=== PATIENT | female | born 1980 | race Caucasian/White ===

== ENCOUNTER 2021-10-18 14:58 | Emergency (ER) | payer MEDICAID, OTHER ==
[~2021-10-18] VITALS: Ht 172.7 cm; Wt 99.8 kg
[2021-10-18] MEDS ORDERED: HALOPERIDOL LACTATE INJ 5 MG/ML VIAL ONE (17:20)
[2021-10-18] MEDS ORDERED: LORAZEPAM INJ 2 MG/ML VIAL ONE (17:21)
[2021-10-18] MEDS ORDERED: LORAZEPAM INJ 2 MG/ML VIAL IM ONE (17:30)
[2021-10-18] MEDS ORDERED: IV NS 0.9% 500 ML BAG IV ONE (17:30)
[2021-10-18] MEDS ORDERED: HALOPERIDOL LACTATE INJ 5 MG/ML VIAL IM ONE (17:30)
--- NOTE | 2021-10-18 17:35 | NUR ---
PT [id number] & [employer] FROM STREET FOR AGITATION/HYPERVERBAL & SCREAMING. PT AAOX2, RR EVEN & UNLABORED. PT SEEN & EVAL'D BY DR. GOODMAN. MEDICATED ORDERED, SITTER AT BS & WILL CONT TO MONITOR.
--- NOTE | 2021-10-18 20:32 | NUR ---
urine collected and sent to lab
[2021-10-18 21:50] LABS: BASOPHILS # (AUTO) 0.1 K/uL (0.0-0.2); BASOPHILS % (AUTO) 1.2 % (0.0-2.0); EOSINOPHILS % (AUTO) 2.8 % (0.0-6.0); HEMATOCRIT 39 % (33-45); HEMOGLOBIN 12.6 g/dL (11.5-14.8); LYMPHOCYTES # (AUTO) 2.9 K/uL (0.8-4.8); LYMPHOCYTES % (AUTO) 48.8 % (20.0-44.0); MEAN CORPUSCULAR HGB CONC 33 g/dl (31.0-36.0); MEAN CORPUSCULAR VOLUME 90 fL (82-100); MONOCYTES # (AUTO) 0.4 K/uL (0.1-1.30); MONOCYTES % (AUTO) 6.5 % (2.0-12.0); NEUTROPHILS # (AUTO) 2.4 K/uL (1.8-8.9); NEUTROPHILS % (AUTO) 40.7 % (43.0-81.0); PLATELET COUNT (AUTO) 159 K/uL (150-450); RED BLOOD CELL COUNT(AUTO) 4.28 MIL/uL (4.0-5.2)
[2021-10-18 22:37] LABS: CALCIUM, SERUM 8.8 mg/dL (8.5-10.1); CARBON DIOXIDE 25 mmol/L (21-32); CHLORIDE 109 mmol/L (98-107); CREATININE 0.8 mg/dL (0.6-1.3); GLUCOSE 95 mg/dL (74-106); POTASSIUM 3.2 mmol/L (3.5-5.1); SODIUM SERUM 144 mmol/L (136-145); UREA NITROGEN, BLOOD 10 mg/dL (7-18)
[2021-10-18 22:45] LABS: ALCOHOL, BLOOD < 3 mg/dL (0-0)
[2021-10-18 22:52] LABS: ACETAMINOPHEN 0 ug/ml (10-30)
[2021-10-19] MEDS ORDERED: POTASSIUM CHLORIDE 20 MEQ TAB.PRT.SR PO ONE ×2 (05:00→07:27)
[2021-10-19] MEDS ORDERED: OLANZAPINE 10 MG VIAL IM ONE ×2 (11:15→11:30)
[2021-10-19] MEDS ORDERED: LORAZEPAM INJ 2 MG/ML VIAL ONE (11:16)
--- NOTE | 2021-10-19 11:22 | NUR ---
PT IS AGITATED. YELLING AND AGRESSIVE TO STAFF. DR STILL AWARE. MEDICATED ORDERED.
[2021-10-19] MEDS ORDERED: LORAZEPAM INJ 2 MG/ML VIAL IM ONE (11:30)
[2021-10-19] MEDS ORDERED: IBUPROFEN 600 MG TABLET ONE (17:28)
--- NOTE | 2021-10-19 23:24 | NUR ---
CALLED TERRY JOHNSON FROM CRISIS TEAM TO SEE THE PT
--- NOTE | 2021-10-20 | NUR ---
IV removed. Catheter intact and site benign. Pressure and 4x4 applied to site. No bleeding noted.
--- NOTE | 2021-10-20 00:15 | NUR ---
TERRY JOHNSON FROM CRISIS TEAM AT BED SIDE
[2021-10-20] MEDS ORDERED: OLANZAPINE 10 MG VIAL IM ONE ×2 (00:30→00:37)
[2021-10-20] MEDS ORDERED: ACETAMINOPHEN ES 500 MG TABLET ONE (01:03)
[2021-10-20] MEDS ORDERED: ACETAMINOPHEN ES 500 MG TABLET PO ONE (01:30)
--- NOTE | 2021-10-20 06:09 | NUR ---
Patient given written and verbal discharge instructions. Patient verbalizes understanding of instructions. Patient is ambulatory with steady gait. Refuses offer of half-way placement. Patient given list of available shelters in surrounding area.
[2021-10-20 06:10] VITALS: BP 135/78
== END 2021-10-20 06:13 | disposition home or self-care (01) ==
LOC: ER 14:58
DX: R45.1 Restlessness and agitation (principal); F20.9 Schizophrenia, unspecified; Z98.890 Other specified postprocedural states; Z59.00 Homelessness unspecified
CPT/HCPCS: 36415; 80048; 80143; 80320; 84703; 85025; 96372 ×5; 99285; J1630; J2060 ×2; J3490 ×2; G0480

== ENCOUNTER 2022-01-30 11:27 | Emergency (ER) | payer OTHER ==
[~2022-01-30] VITALS: Ht 167.6 cm; Wt 77.1 kg
--- NOTE | 2022-01-30 11:36 | NUR ---
To ER bed 15, BIBA RA97 Escorted by ERIC [place] [id number] "Generated multiple 911 calls- Agitated/rambling throwing stuff on the streets.", aaox1, speaks incoherently, breathing even and non labored, awaiting md orders
[2022-01-30] MEDS ORDERED: LORAZEPAM INJ 2 MG/ML VIAL ONE (11:56)
[2022-01-30] MEDS ORDERED: OLANZAPINE 10 MG VIAL IM ONE (11:56)
[2022-01-30] MEDS: LORAZEPAM INJ 2 MG/ML VIAL IM ONE (12:04)
[2022-01-30] MEDS: OLANZAPINE 10 MG VIAL IM ONE (12:04)
[2022-01-30 12:16] LABS: BASOPHILS # (AUTO) 0.1 K/uL (0.0-0.2); BASOPHILS % (AUTO) 0.9 % (0.0-2.0); EOSINOPHILS % (AUTO) 1.5 % (0.0-6.0); HEMATOCRIT 35 % (33-45); HEMOGLOBIN 11.7 g/dL (11.5-14.8); LYMPHOCYTES % (AUTO) 41.7 % (20.0-44.0); MEAN CORPUSCULAR HGB CONC 34 g/dl (31.0-36.0); MEAN CORPUSCULAR VOLUME 90 fL (82-100); MONOCYTES # (AUTO) 0.6 K/uL (0.1-1.30); MONOCYTES % (AUTO) 8.2 % (2.0-12.0); NEUTROPHILS # (AUTO) 3.4 K/uL (1.8-8.9); NEUTROPHILS % (AUTO) 47.7 % (43.0-81.0); PLATELET COUNT (AUTO) 138 K/uL (150-450); RED BLOOD CELL COUNT(AUTO) 3.85 MIL/uL (4.0-5.2); WHITE BLOOD COUNT (AUTO) 7.2 K/uL (4.3-11.0)
[2022-01-30 12:19] LABS: ALANINE AMINOTRANSFERASE 47 U/L (12-78); ALBUMIN 4.4 g/dL (3.4-5.0); ALCOHOL, BLOOD < 3 mg/dL (0-0); ALKALINE PHOSPHATASE 71 U/L (46-116); ASPARTATE AMINOTRANSFERASE 38 U/L (15-37); BILIRUBIN,DIRECT 0.2 mg/dL (0.0-0.2); BILIRUBIN,TOTAL 0.7 mg/dL (0.2-1.0); CALCIUM, SERUM 8.7 mg/dL (8.5-10.1); CARBON DIOXIDE 25 mmol/L (21-32); CHLORIDE 105 mmol/L (98-107); GLUCOSE 77 mg/dL (74-106); POTASSIUM 3.2 mmol/L (3.5-5.1); SODIUM SERUM 141 mmol/L (136-145); TOTAL PROTEIN, SERUM 7.5 g/dL (6.4-8.2); UREA NITROGEN, BLOOD 11 mg/dL (7-18)
[2022-01-30 12:55] LABS: ACETAMINOPHEN < 0 ug/ml (10-30)
--- NOTE | 2022-01-30 13:34 | NUR ---
URINE COLLECTED AND SENT TO LAB
[2022-01-30 14:16] LABS: BILIRUBIN,URINE NEGATIVE (NEGATIVE); COLOR,URINE YELLOW (YELLOW); LEUKOCYTE ESTERASE ,URINE NEGATIVE (NEGATIVE); NITRITE, URINE NEGATIVE (NEGATIVE); PROTEIN,URINE NEGATIVE (NEGATIVE); UGLUCOSE NEGATIVE (NEGATIVE)
[2022-01-30 15:01] LABS: BACTERIA,URINE Rare /HPF (None Seen); MUCUS,URINE Moderate /LPF (None Seen); SQUAMOUS EPITHELIAL CELL,UR Few /HPF (None Seen)
--- NOTE | 2022-01-30 15:24 | NUR ---
SS Consult for drug use. SW met with pt. at bedside and pt. is not able to answer questons at this time. SW will attempt to assess pt. at a later time.
[2022-01-31] VITALS: BP 123/70
--- NOTE | 2022-01-31 05:23 | NUR ---
Patient discharged to home in stable condition. Written and verbal after care instructions given. Patient verbalizes understanding of instruction.
== END 2022-01-31 05:24 | disposition home or self-care (01) ==
LOC: ER 11:32 → MERGE 11:32 → ER 01-31 05:24
DX: R46.1 Bizarre personal appearance (principal); R00.0 Tachycardia, unspecified; Z59.00 Homelessness unspecified
CPT/HCPCS: 36415; 80048; 80076; 80143; 80307; 80320; 81001; 85025; 96372 ×2; 99284; J2060; J3490; G0480

== ENCOUNTER 2024-02-18 00:25 | Inpatient (IN) | payer OTHER ==
[~2024-02-18] VITALS: Ht 167.6 cm; Wt 59.0 kg
[2024-02-18] MEDS: IV NS 0.9% 1,000 ML IV ONE ×2 (01:09→02:30)
[2024-02-18 01:31] LABS: BASOPHILS # (AUTO) 0.1 K/uL (0.0-0.2); BASOPHILS % (AUTO) 0.7 % (0.0-2.0); EOSINOPHILS # (AUTO) 0.1 K/uL (0.0-0.7); HEMATOCRIT 34 % (33-45); HEMOGLOBIN 10.9 g/dL (11.5-14.8); LYMPHOCYTES # (AUTO) 1.4 K/uL (0.8-4.8); LYMPHOCYTES % (AUTO) 11.5 % (20.0-44.0); MEAN CORPUSCULAR HEMOGLOBIN 27 PG (26.0-33.0); MEAN CORPUSCULAR HGB CONC 32 g/dl (31.0-36.0); MEAN CORPUSCULAR VOLUME 84 fL (82-100); MONOCYTES # (AUTO) 0.9 K/uL (0.1-1.30); MONOCYTES % (AUTO) 7.2 % (2.0-12.0); NEUTROPHILS # (AUTO) 9.8 K/uL (1.8-8.9); NEUTROPHILS % (AUTO) 79.6 % (43.0-81.0); PLATELET COUNT (AUTO) 178 K/uL (150-450); RED BLOOD CELL COUNT(AUTO) 4.06 MIL/uL (4.0-5.2); RED CELL DISTRIBUTION WIDTH 15.3 % (11.5-15.0); WHITE BLOOD COUNT (AUTO) 12.3 K/uL (4.3-11.0)
[2024-02-18 01:46] LABS: CALCIUM, SERUM 8.6 mg/dL (8.5-10.1); CARBON DIOXIDE 27 mmol/L (21-32); CHLORIDE 105 mmol/L (98-107); CREATININE 1.1 mg/dL (0.6-1.3); GLUCOSE 92 mg/dL (74-106); SODIUM SERUM 143 mmol/L (136-145); UREA NITROGEN, BLOOD 24 mg/dL (7-18)
[2024-02-18 01:55] LABS: APPEARANCE,URINE CLEAR (CLEAR); BILIRUBIN,URINE NEGATIVE (NEGATIVE); BLOOD, URINE 1+ Ery/uL (NEGATIVE); COLOR,URINE YELLOW (YELLOW); KETONES,URINE NEGATIVE (NEGATIVE); LEUKOCYTE ESTERASE ,URINE NEGATIVE (NEGATIVE); NITRITE, URINE NEGATIVE (NEGATIVE); PROTEIN,URINE 3+ mg/dl (NEGATIVE); UGLUCOSE TRACE mg/dL (NEGATIVE); UROBILINOGEN,URINE 0.2 EU/dL (0.2)
[2024-02-18 02:00] LABS: ALANINE AMINOTRANSFERASE 124 U/L (12-78); ALBUMIN 3.3 g/dL (3.4-5.0); ALCOHOL, BLOOD < 3 mg/dL (0-10); ALKALINE PHOSPHATASE 121 U/L (46-116); ASPARTATE AMINOTRANSFERASE 118 U/L (15-37); BILIRUBIN,TOTAL 0.3 mg/dL (0.2-1.0); NT-PRO BNP 50 pg/mL (0-125); TOTAL PROTEIN, SERUM 7.6 g/dL (6.4-8.2)
[2024-02-18 02:02] LABS: LACTIC ACID 4.1 mmol/L (0.4-2.0)
[2024-02-18] MEDS: PIPERACILLIN /TAZOBACTAM 3.375 G in IV D5W 50 ML IV ONE (02:30)
[2024-02-18 03:40] LABS: BARBITURATE, URINE NEGATIVE (NEGATIVE); CANNABINOID, URINE NEGATIVE (NEGATIVE); COCCAINE, URINE NEGATIVE (NEGATIVE); OPIATE, URINE NEGATIVE (NEGATIVE); PHENCYCLIDINE SCREEN,URINE NEGATIVE (NEGATIVE)
[2024-02-18 04:01] LABS: AMPHETAMINE, URINE POSITIVE (NEGATIVE); BENZODIAZEPINE, URINE POSITIVE (NEGATIVE)
[2024-02-18] MEDS ORDERED: PIPERACI/TAZO 3.375GM/D5W 50ML PB IV ONE (04:05)
[2024-02-18 04:11] LABS: WBC,URINE 0-2 /HPF (0-3)
[2024-02-18 04:12] LABS: ADD URINE CULTURE NO; BACTERIA,URINE Few /HPF (None Seen); PREGNANCY TEST URINE QUAL NEGATIVE (NEGATIVE); SQUAMOUS EPITHELIAL CELL,UR Few /HPF (None Seen)
[2024-02-18 07:14] LABS: BILIRUBIN,DIRECT 0.1 mg/dL (0.0-0.2); LACTIC ACID REFLEX 0.7 mmol/L (0.4-1.9)
[2024-02-18] MEDS ORDERED: MAG HYDROX/AL HYDROX/SIMETH 30 ML UDC PO PRN (09:00)
[2024-02-18] MEDS ORDERED: ACETAMINOPHEN 325 MG TABLET PO PRN (09:00)
[2024-02-18] MEDS ORDERED: ONDANSETRON HCL/PF 4 MG/2 ML VIAL IVP PRN (09:00)
[2024-02-18] MEDS ORDERED: IV NS 0.9% 1,000 ML IV PRN (09:00)
[2024-02-18] MEDS ORDERED: TEMAZEPAM 15 MG CAPSULE PO PRN (09:00)
[2024-02-18] MEDS ORDERED: MAGNESIUM HYDROXIDE 30 ML UDC PO PRN (09:00)
[2024-02-18] MEDS ORDERED: LORAZEPAM 1 MG TABLET PO PRN (09:00)
[2024-02-18] MEDS ORDERED: Z GUARD REMEDY 4 OZ OINT TP PRN (09:00)
[2024-02-18] MEDS: PANTOPRAZOLE 40 MG TABLET.DR PO SCH (09:00)
[2024-02-18] MEDS: POTASSIUM CHLORIDE 20 MEQ TAB.PRT.SR PO ONE ×2 (09:30→13:03)
[2024-02-18 12:00] VITALS: BP 125/97; TEMP 98.4; O2SAT 100
[2024-02-19] MEDS ORDERED: TRAMADOL HCL 50 MG TABLET PO PRN
[2024-02-19 00:39] VITALS: BP 143/95; TEMP 98.7; O2SAT 98
[2024-02-19 05:14] VITALS: BP 139/105; TEMP 98.3; O2SAT 100
[2024-02-19 08:00] VITALS: BP 131/88; TEMP 98.5; O2SAT 100
[2024-02-19 16:00] VITALS: BP 131/88; TEMP 98.5; O2SAT 100
== END 2024-02-19 18:50 | disposition home or self-care (01) | DRG 812 ==
LOC: ER 00:27 → TELE1 09:07 → MEDSG1 17:16
PROVIDERS: ADMIT Nurse Practitioner Acute Care; ATTEND Nurse Practitioner Acute Care
DX: T40.411A Poisoning by fentanyl or fentanyl analogs, accidental (unintentional), initial encounter (principal); G92.8 Other toxic encephalopathy; E87.20 Acidosis, unspecified; E86.0 Dehydration; E66.9 Obesity, unspecified; E87.6 Hypokalemia; F20.9 Schizophrenia, unspecified; F32.A Depression, unspecified; F41.9 Anxiety disorder, unspecified; F43.9 Reaction to severe stress, unspecified; R74.01 Elevation of levels of liver transaminase levels; Z59.00 Homelessness unspecified; T43.651A Poisoning by methamphetamines accidental (unintentional), initial encounter; T42.4X1A Poisoning by benzodiazepines, accidental (unintentional), initial encounter; Y92.009 Unspecified place in unspecified non-institutional (private) residence as the place of occurrence of the external cause; Z68.21 Body mass index [BMI] 21.0-21.9, adult
CPT/HCPCS: 36415; 71045-TC; 76705-TC; 80053-TC; 81001; 82248-TC; 83605-TC; 83880; 84484-TC; 84703-TC; 85025-TC; 87040-TC; G0378; G0480; J2543; J7060